=== PATIENT | male | born 1965 | race Caucasian/White ===

== ENCOUNTER 2021-12-04 01:50 | Emergency (ER) | payer SELFPAY ==
[~2021-12-04] VITALS: Ht 172.7 cm; Wt 77.6 kg
--- NOTE | 2021-12-04 01:53 | NUR ---
BIBA TAKEN TO BED #11
[2021-12-04 01:54] VITALS: BP 133/69
[2021-12-04] MEDS ORDERED: KETOROLAC 30 MG/ML VIAL IM ONE (02:30)
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
[2021-12-04 02:38] VITALS: BP 125/75
[2021-12-04] MEDS: KETOROLAC 30 MG/ML VIAL IM STA (02:43)
[2021-12-04 02:51] LABS: BASOPHILS # (AUTO) 0.1 K/uL (0.00-0.22); BASOPHILS % (AUTO) 1.3 % (0.0-2.0); EOSINOPHILS # (AUTO) 0.1 K/uL (0-0.4); EOSINOPHILS % (AUTO) 1.7 % (0.0-4.0); HEMATOCRIT 40.1 % (36-52); HEMOGLOBIN 13.3 g/dL (12.0-18.0); LYMPHOCYTES # (AUTO) 0.8 K/uL (2.0-11.5); LYMPHOCYTES % (AUTO) 16.2 % (20.5-51.1); MEAN CORPUSCULAR HEMOGLOBIN 30 pg (27-31); MEAN CORPUSCULAR HGB CONC 33 g/dL (33-37); MEAN CORPUSCULAR VOLUME 90.7 fL (80-94); MONOCYTES # (AUTO) 0.3 K/uL (0.8-1.0); MONOCYTES % (AUTO) 6.8 % (1.7-9.3); NEUTROPHILS # (AUTO) 3.5 K/uL (1.8-7.7); PLATELET COUNT (AUTO) 168 K/uL (140-450); RED BLOOD CELL COUNT(AUTO) 4.42 MIL/uL (4.20-6.10); WHITE BLOOD COUNT (AUTO) 4.8 K/uL (4.8-10.8)
--- NOTE | 2021-12-04 03:02 | NUR ---
XRAY AT BEDSIDE
[2021-12-04 03:10] LABS: LIPASE 81 U/L (73-393)
--- NOTE | 2021-12-04 03:22 | NUR ---
ULTRASOUND AT BEDSIDE
[2021-12-04 03:54] LABS: ANION GAP 12.1 (8-16); CARBON DIOXIDE 29.7 mmol/L (21-32); CREATININE 1.2 mg/dL (0.6-1.3); POTASSIUM 3.8 mmol/L (3.5-5.1); TOTAL BILIRUBIN 1.1 mg/dL (0.0-1.0)
[2021-12-04] MEDS ORDERED: FURO-572 PO (04:44)
[2021-12-04] MEDS ORDERED: ACET-10509 PO (04:44)
[2021-12-04] MEDS ORDERED: CEPH-588 PO (04:44)
--- NOTE | 2021-12-04 05:32 | NUR ---
pt d/c with [facility]. d/c education given. opportunity to ask questions given and answered. rx of lasix, tylenol and keflex given.
== END 2021-12-04 05:32 | disposition home or self-care (01) ==
LOC: MED 01:50
DX: L03.119 Cellulitis of unspecified part of limb (principal); R60.0 Localized edema
CPT/HCPCS: 36415; 71045; 80053; 83690; 83880; 84484; 85025; 93005; 93970; 96372; 99285; J1885; Q0092